=== PATIENT | male | born 1985 | race Caucasian/White ===

== ENCOUNTER 2021-01-05 12:49 | Emergency (ER) | payer OTHER ==
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
--- NOTE | 2021-01-05 16:43 | CR ---
Ankle Min 3V Lt CLINICAL HISTORY: Posterior pain FINDINGS: The soft tissues are generally swollen over the lateral malleolus. The contour the Achilles tendon may be slightly thickened but uniform. There is moderate deformity of the distal tibia and fibula from previous fracture and ORIF. 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 Impression: Soft tissue swelling Moderate deformity of the distal tibia and fibula from previous fractures Deformity of the tibiotalar joint
--- NOTE | 2021-01-05 19:43 | CRLCT ---
For Patients: As a result of the 21st Century Cures Act, medical imaging exams and procedure reports are released immediately into your electronic medical record. You may view this report before your referring provider. If you have questions, please contact your health care provider. INDICATION: Trauma. TECHNIQUE: Left ankle CT. Notably, distal aspect of the field of view excludes the distal/plantar aspects of the calcaneus, the distal midfoot, and the 5th metatarsal base. Coronal and sagittal reformats. COMPARISON: None available. FINDINGS: Multiple tubular lucencies scattered throughout the distal tibia, talus, and calcaneus, compatible with ghost tracts from prior surgical intervention. Comminuted fracture anterolateral tibial plafond with up to 3 mm of articular diastasis (series 4, image 144). The opposing talar dome demonstrates a large region of articular impaction measuring approximately 2.6 cm AP (series 1011, image 28) and 1.9 cm transverse (series 1017, image 19), with a maximal depth of approximately 0.6 cm. Vertically-oriented fracture lines traversing the talar dome and body in the sagittal plane, extending to the posterior subtalar facet where there is 2-3 mm of articular diastasis. Minimally displaced avulsion type fracture of the lateral talar process. Minimally displaced posterior calcaneal fracture, extending toward the calcaneal tuberosity though this area is excluded from the field of view. The Achilles tendon appears grossly intact. The plantar fascia is excluded from the field of view. Tibiotalar joint effusion with multiple millimetric intra-articular fracture fragments. Subcutaneous edema about the ankle. IMPRESSION: 1. Left talar comminuted intra-articular fracture with marked talar dome articular impaction and 2-3 mm articular diastasis at the posterior subtalar facet. 2. Left anterolateral tibial plafond comminuted fracture with up to 3 mm articular diastasis. 3. Left posterior calcaneus minimally displaced fracture extending toward the calcaneal tuberosity, though this portion of the calcaneus is excluded from the field of imaging. 4. Lateral talar process minimally displaced avulsion type fracture. 5. Tibiotalar joint effusion with tiny intra-articular fracture fragments. 6. The plantar/distal calcaneus, distal midfoot, and 5th metatarsal base are excluded from the field of imaging. Dictated by Adalberto Chance MD @ 01/05/2021 7:42:29 PM Please note that all CT scans at this facility use dose modulation, iterative reconstruction, and/or weight-based dosing when appropriate to reduce radiation dose to as low as reasonably achievable. Dictated by: Adalberto Chance MD @ 01/05/2021 19:42:34 (Electronically Signed)
== END 2021-01-05 19:59 | disposition home or self-care (01) ==
LOC: JP.ED 12:49
DX: S00.93XA Contusion of unspecified part of head, initial encounter (principal); S90.512A Abrasion, left ankle, initial encounter; S90.511A Abrasion, right ankle, initial encounter; Z72.0 Tobacco use; V49.9XXA Car occupant (driver) (passenger) injured in unspecified traffic accident, initial encounter
CPT/HCPCS: 73610-26-LT; 73610-LT; 73700-LT; 99284-25